=== PATIENT | male | born 1955 | race Caucasian/White ===

== ENCOUNTER 2016-11-30 10:01 | Outpatient (RCR) | payer OTHER | END 2016-12-28 | LOC: M CR 10:01 | PROVIDERS: ATTEND Internal Medicine Cardiovascular Disease | DX: Z51.89 Encounter for other specified aftercare (principal); Z98.61 Coronary angioplasty status; I25.10 Atherosclerotic heart disease of native coronary artery without angina pectoris ==

== ENCOUNTER → 2017-04-07 | Outpatient (CLI) | payer OTHER ==
[2017-04-07 09:47] LABS: MEAN CORPUSCULAR HEMOGLOBIN 31.4 pg (27.0-33.0); MEAN CORPUSCULAR HGB CONC 33.9 g/dl (32.0-36.5); MEAN CORPUSCULAR VOLUME 92.7 fl (80.0-96.0); RED CELL DISTRIBUTION WIDTH 12.6 % (11.5-14.5); WHITE BLOOD COUNT 8.5 K/mm3 (4.0-10.0)
[2017-04-07 10:20] LABS: ANION GAP 7 MEQ/L (8-16); BLOOD UREA NITROGEN 17 MG/DL (7-18); CALCIUM LEVEL 8.4 MG/DL (8.8-10.2); CARBON DIOXIDE LEVEL 28 MEQ/L (21-32); CHLORIDE LEVEL 105 MEQ/L (98-107); CHOLESTEROL LEVEL 129 MG/DL (<200); CREATININE FOR GFR 1.07 MG/DL (0.70-1.30); GLOMERULAR FILTRATION RATE > 60.0 (>49); GLUCOSE, FASTING 104 MG/DL (80-110); POTASSIUM SERUM 4.5 MEQ/L (3.5-5.1); SODIUM LEVEL 140 MEQ/L (136-145); TRIGLYCERIDES LEVEL 72 MG/DL (<150)
== END ==
LOC: M WUC 08:08
PROVIDERS: ATTEND Internal Medicine Cardiovascular Disease
DX: E78.5 Hyperlipidemia, unspecified (principal); I25.10 Atherosclerotic heart disease of native coronary artery without angina pectoris

== ENCOUNTER 2018-02-17 14:20 | Observation (INO) | payer OTHER, SELFPAY ==
[2018-02-17 15:30] LABS: BEDSIDE GLUCOSE 107 MG/DL (80-115)
[2018-02-17 15:41] LABS: BASO % 0.2 % (0.0-1.0); EOS # 0.2 10^3/uL (0.0-0.50); EOS % 1.6 % (0.0-3.0); HEMATOCRIT 47.6 % (42.0-52.0); HEMOGLOBIN 15.9 g/dl (14.0-18.0); IMMATURE GRANULOCYTE % 0.4 % (0-3.0); LYMPH % 14.5 % (24.0-44.0); MEAN CORPUSCULAR HEMOGLOBIN 29.6 pg (27.0-33.0); MEAN CORPUSCULAR HGB CONC 33.4 g/dl (32.0-36.5); MEAN CORPUSCULAR VOLUME 88.5 fl (80.0-96.0); MONO # 1.3 10^3/uL (0.0-0.8); MONO % 9.3 % (0.0-5.0); PLATELET COUNT, AUTOMATED 196 10^3/uL (150-450); RED BLOOD COUNT 5.38 10^6/uL (4.30-6.10); RED CELL DISTRIBUTION WIDTH 12.4 % (11.5-14.5); WHITE BLOOD COUNT 13.5 10^3/uL (4.0-10.0)
[2018-02-17 15:59] LABS: INR 0.97; PARTIAL THROMBOPLASTIN TIME 24.8 SECONDS (26.8-37.9); PROTHROMBIN TIME 12.9 SECONDS (12.4-14.5)
[2018-02-17 16:11] LABS: ANION GAP 5 MEQ/L (8-16); BLOOD UREA NITROGEN 14 MG/DL (7-18); CALCIUM LEVEL 8.8 MG/DL (8.8-10.2); CARBON DIOXIDE LEVEL 30 MEQ/L (21-32); CHLORIDE LEVEL 104 MEQ/L (98-107); CPK CREATINE PHOSPHOKINASE 184 U/L (39-308); CREATININE FOR GFR 1.05 MG/DL (0.70-1.30); GLOMERULAR FILTRATION RATE > 60.0 (>49); GLUCOSE, FASTING 109 MG/DL (70-100); POTASSIUM SERUM 4.6 MEQ/L (3.5-5.1); SODIUM LEVEL 139 MEQ/L (136-145); TROPONIN I < 0.02 NG/ML (< 0.10)
[2018-02-17 16:17] LABS: CK-MB VALUE MASS 2.3 NG/ML (<3.6); MB/CK RELATIVE INDEX 1.25 (< OR =4)
[2018-02-17 17:54] LABS: CK-MB VALUE MASS 1.9 NG/ML (<3.6); CPK CREATINE PHOSPHOKINASE 173 U/L (39-308); MB/CK RELATIVE INDEX 1.09 (< OR =4); TROPONIN I < 0.02 NG/ML (< 0.10)
[2018-02-17 22:39] LABS: CK-MB VALUE MASS 1.7 NG/ML (<3.6); CPK CREATINE PHOSPHOKINASE 150 U/L (39-308); MB/CK RELATIVE INDEX 1.13 (< OR =4); TROPONIN I < 0.02 NG/ML (< 0.10)
[2018-02-18] MEDS ORDERED: ACETAMINOPHEN TAB 650MG DOSE (2X325MG) PO ×2
[2018-02-18] MEDS: ASPIRIN 81 MG ENTERIC TAB PO ×2 (08:47)
[2018-02-18 08:59] LABS: HEMATOCRIT 45.5 % (42.0-52.0); MEAN CORPUSCULAR HEMOGLOBIN 29.5 pg (27.0-33.0); MEAN CORPUSCULAR VOLUME 89.4 fl (80.0-96.0); PLATELET COUNT, AUTOMATED 222 10^3/uL (150-450); RED BLOOD COUNT 5.09 10^6/uL (4.30-6.10); RED CELL DISTRIBUTION WIDTH 12.6 % (11.5-14.5); WHITE BLOOD COUNT 9.3 10^3/uL (4.0-10.0)
[2018-02-18 09:24] LABS: ANION GAP 6 MEQ/L (8-16); BLOOD UREA NITROGEN 11 MG/DL (7-18); CALCIUM LEVEL 8.3 MG/DL (8.8-10.2); CARBON DIOXIDE LEVEL 30 MEQ/L (21-32); CHLORIDE LEVEL 105 MEQ/L (98-107); CREATININE FOR GFR 1.09 MG/DL (0.70-1.30); GLOMERULAR FILTRATION RATE > 60.0 (>49); GLUCOSE, FASTING 130 MG/DL (70-100); POTASSIUM SERUM 4.2 MEQ/L (3.5-5.1); SODIUM LEVEL 141 MEQ/L (136-145)
[2018-02-18] MEDS ORDERED: ATORVASTATIN 20 MG TAB PO ×2 (21:00)
== END 2018-02-18 14:44 | disposition home or self-care (01) ==
LOC: M ED INP 14:21 → M ED 14:20
PROVIDERS: Hospitalist
DX: R55 Syncope and collapse (principal); I10 Essential (primary) hypertension; E78.4 Other hyperlipidemia; I25.10 Atherosclerotic heart disease of native coronary artery without angina pectoris; Z98.61 Coronary angioplasty status; Z79.82 Long term (current) use of aspirin; I65.23 Occlusion and stenosis of bilateral carotid arteries; Z79.899 Other long term (current) drug therapy
CPT/HCPCS: 71045

== ENCOUNTER → 2020-04-29 | Outpatient (CLI) | payer SELFPAY ==
[~2020-04-29] MED LIST: ASPI81TA85 PO; ATOR1TAB21 PO; METO1TAB87 PO
[2020-04-29 10:21] LABS: BLOOD UREA NITROGEN 13 MG/DL (7-18); CARBON DIOXIDE LEVEL 29 MEQ/L (21-32); CHLORIDE LEVEL 105 MEQ/L (98-107); CHOLESTEROL LEVEL 120 MG/DL (<200); CREATININE FOR GFR 1.09 MG/DL (0.70-1.30); GLOMERULAR FILTRATION RATE > 60.0 (>49); GLUCOSE, FASTING 107 MG/DL (70-100); HDL CHOLESTEROL 40 MG/DL (>40); LDL CHOLESTEROL 66 MG/DL (<100); NON-HDL-C 80 MG/DL; POTASSIUM SERUM 4.5 MEQ/L (3.5-5.1); SODIUM LEVEL 138 MEQ/L (136-145); TRIGLYCERIDES LEVEL 71 MG/DL (<150)
== END ==
LOC: M WUC 08:32
PROVIDERS: ATTEND Nurse Practitioner Family
DX: I25.10 Atherosclerotic heart disease of native coronary artery without angina pectoris (principal)

== ENCOUNTER 2023-09-04 08:15 | Inpatient (IN) | payer MEDICARE, SELFPAY ==
[2023-09-04] VITALS (9 sets, daily range): BP systolic 130–194; BP diastolic 61–81; TEMP 96.5–98.2; O2SAT 96–98
[~2023-09-04] VITALS: Ht 182.9 cm; Wt 86.6 kg
[~2023-09-04 08:15] MED LIST changes: -ASPI81TA85 PO; +ASPI81TA86 PO
[2023-09-04] MEDS ORDERED: ISOVUE-370 76% 100ML VIAL As Ordered ONE (08:25)
[2023-09-04] MEDS ORDERED: IBUP-1114 PO (09:18)
[2023-09-04 09:27] LABS: BASO % 0.4 % (0.0-1.0); EOS # 0.3 10^3/uL (0.0-0.5); EOS % 3.8 % (0.0-3.0); HEMATOCRIT 45.5 % (42.0-52.0); HEMOGLOBIN 14.9 g/dl (13.5-17.5); LYMPH % 22.1 % (24.0-44.0); MEAN CORPUSCULAR HEMOGLOBIN 29.7 pg (27.0-33.0); MEAN CORPUSCULAR HGB CONC 32.7 g/dl (32.0-36.5); MEAN CORPUSCULAR VOLUME 90.8 fl (80.0-96.0); MONO # 0.6 10^3/uL (0.0-0.8); MONO % 7.1 % (2.0-8.0); NEUTROPHILS # 5.9 10^3/uL (1.5-8.5); NEUTROPHILS % 66.5 % (36.0-66.0); PLATELET COUNT, AUTOMATED 183 10^3/uL (150-450); RED BLOOD COUNT 5.01 10^6/uL (4.30-6.10); WHITE BLOOD COUNT 8.9 10^3/uL (4.0-10.0)
[2023-09-04 09:39] LABS: INR 1.1; PARTIAL THROMBOPLASTIN TIME 26.5 SECONDS (24.8-34.2); PROTHROMBIN TIME 13.9 SECONDS (12.5-14.5)
[2023-09-04 09:45] LABS: BLOOD UREA NITROGEN 20 MG/DL (9-23); CALCIUM LEVEL 8.3 MG/DL (8.3-10.6); CARBON DIOXIDE LEVEL 25 MMOL/L (20-31); CHLORIDE LEVEL 107 MMOL/L (98-107); CK-MB VALUE MASS 1.5 NG/ML (<3.6); GLOMERULAR FILTRATION RATE > 60.0 (>49); GLUCOSE, FASTING 106 MG/DL (74-106); POTASSIUM SERUM 4.4 MMOL/L (3.5-5.1); SODIUM LEVEL 138 MMOL/L (136-145)
[2023-09-04 09:55] LABS: RSV AMPLIFICATION NEGATIVE (NEGATIVE)
[2023-09-04 09:58] LABS: CPK CREATINE PHOSPHOKINASE 181 U/L (46-171); MB/CK RELATIVE INDEX 0.82 (< OR =4)
[2023-09-04] MEDS ORDERED: ASPIRIN 81MG CHEW TABLET PO ONE (10:30)
[2023-09-04 10:46] LABS: CK-MB VALUE MASS 1.7 NG/ML (<3.6)
[2023-09-04 10:47] LABS: MB/CK RELATIVE INDEX 0.94 (< OR =4)
[2023-09-04] MEDS ORDERED: MED REC IN PROGRESS XX SCH (11:15)
[2023-09-04] MEDS ORDERED: IBUP200C25 PO (12:01)
[2023-09-04] MEDS ORDERED: ATOR40TA75 PO (12:01)
[2023-09-04] MEDS ORDERED: ASPI-161 PO (12:01)
[2023-09-04] MEDS ORDERED: ATORVASTATIN 20 MG TAB PO ONE (12:10)
[2023-09-04] MEDS ORDERED: HOME MED LIST COMPLETE! XX SCH (12:10)
[2023-09-04] MEDS ORDERED: ACETAMINOPHEN TAB 650MG DOSE (2X325MG) PO PRN (14:55)
[2023-09-04] MEDS ORDERED: MOM 30ML SUSPENSION UDC PO PRN (14:55)
[2023-09-04] MEDS ORDERED: NS 1,000 ML IV SCH (14:55)
[2023-09-04] MEDS ORDERED: ENOXAPARIN 40MG/0.4ML SYRINGE (J1650 PER 10MG) SC ONE (14:55)
[2023-09-04] MEDS ORDERED: SENOKOT S TAB PO PRN (14:55)
[2023-09-04] MEDS ORDERED: NS 1,000 ML IV ONE ×2 (16:35→22:25)
[2023-09-04] MEDS: NS 1,000 ML IV SCH (22:42)
[2023-09-05] VITALS (8 sets, daily range): BP systolic 105–161; BP diastolic 60–75; TEMP 96.4–98.4; O2SAT 95–98
[2023-09-05] MEDS: NS 1,000 ML IV SCH ×4 (04:37→19:42)
[2023-09-05 06:50] LABS: HEMATOCRIT 41.7 % (42.0-52.0); HEMOGLOBIN 13.8 g/dl (13.5-17.5); MEAN CORPUSCULAR HEMOGLOBIN 29.8 pg (27.0-33.0); MEAN CORPUSCULAR HGB CONC 33.1 g/dl (32.0-36.5); MEAN CORPUSCULAR VOLUME 90.1 fl (80.0-96.0); PLATELET COUNT, AUTOMATED 173 10^3/uL (150-450); RED BLOOD COUNT 4.63 10^6/uL (4.30-6.10); WHITE BLOOD COUNT 7.8 10^3/uL (4.0-10.0)
[2023-09-05 07:20] LABS: BLOOD UREA NITROGEN 12 MG/DL (9-23); CALCIUM LEVEL 7.7 MG/DL (8.3-10.6); CARBON DIOXIDE LEVEL 24 MMOL/L (20-31); CHLORIDE LEVEL 111 MMOL/L (98-107); CHOLESTEROL LEVEL 99 MG/DL (<200); CHOLESTEROL RISK RATIO 3.16 (<5); CREATININE FOR GFR 0.91 MG/DL (0.70-1.30); GLOMERULAR FILTRATION RATE > 60.0 (>49); GLUCOSE, FASTING 103 MG/DL (74-106); HDL CHOLESTEROL 31.3 MG/DL (>40); LDL CHOLESTEROL 54.7 MG/DL (<100); NON-HDL-C 67.7 MG/DL; POTASSIUM SERUM 3.9 MMOL/L (3.5-5.1); SODIUM LEVEL 141 MMOL/L (136-145); TRIGLYCERIDES LEVEL 65 MG/DL (<150)
[2023-09-05 07:47] LABS: HEMOGLOBIN A1c 5.1 % (4.0-6.0)
[2023-09-05] MEDS: ASPIRIN ENTERIC 325MG TAB PO SCH (08:35)
[2023-09-05] MEDS: ENOXAPARIN 40MG/0.4ML SYRINGE (J1650 PER 10MG) SC SCH (08:35)
[2023-09-05] MEDS ORDERED: NS 500 ML IV ONE ×3 (09:15→18:25)
[2023-09-05] MEDS ORDERED: NS 1,000 ML IV ONE (13:40)
[2023-09-05] MEDS ORDERED: ATORVASTATIN 20 MG TAB PO SCH (21:00)
[2023-09-06] MEDS: NS 1,000 ML IV SCH ×2 (02:36→09:15)
[2023-09-06 04:19] VITALS: BP 110/56; TEMP 97.3; O2SAT 94
[2023-09-06] MEDS ORDERED: NS 500 ML IV ONE (04:35)
[2023-09-06 06:09] LABS: HEMATOCRIT 38.6 % (42.0-52.0); HEMOGLOBIN 12.7 g/dl (13.5-17.5); MEAN CORPUSCULAR HEMOGLOBIN 29.7 pg (27.0-33.0); MEAN CORPUSCULAR HGB CONC 32.9 g/dl (32.0-36.5); MEAN CORPUSCULAR VOLUME 90.2 fl (80.0-96.0); PLATELET COUNT, AUTOMATED 157 10^3/uL (150-450); RED BLOOD COUNT 4.28 10^6/uL (4.30-6.10); WHITE BLOOD COUNT 6.9 10^3/uL (4.0-10.0)
[2023-09-06 06:32] LABS: BLOOD UREA NITROGEN 9 MG/DL (9-23); CALCIUM LEVEL 7.6 MG/DL (8.3-10.6); CARBON DIOXIDE LEVEL 24 MMOL/L (20-31); CHLORIDE LEVEL 113 MMOL/L (98-107); CREATININE FOR GFR 0.91 MG/DL (0.70-1.30); GLOMERULAR FILTRATION RATE > 60.0 (>49); GLUCOSE, FASTING 100 MG/DL (74-106); POTASSIUM SERUM 3.7 MMOL/L (3.5-5.1); SODIUM LEVEL 143 MMOL/L (136-145)
[2023-09-06] MEDS: ASPIRIN ENTERIC 325MG TAB PO SCH (09:09)
[2023-09-06] MEDS: ENOXAPARIN 40MG/0.4ML SYRINGE (J1650 PER 10MG) SC SCH (09:10)
[2023-09-06 09:13] VITALS: BP 135/68; TEMP 97; O2SAT 98
[2023-09-06] MEDS ORDERED: ACET1TAB55 PO (11:06)
[2023-09-06] MEDS ORDERED: ATOR1TAB21 PO (11:06)
[2023-09-06 12:48] VITALS: BP 139/65; TEMP 97.8; O2SAT 99
== END 2023-09-06 14:06 | disposition home or self-care (01) | DRG 66 ==
LOC: M ED 08:15 → EDBD 08:15 → M ED INP 11:20 → M PCU 12:06
PROVIDERS: ADMIT General Practice; ATTEND General Practice
PROC: B246ZZZ Ultrasonography of Right and Left Heart (ICD-10-PCS; principal; 2023-09-06)
DX: I63.511 Cerebral infarction due to unspecified occlusion or stenosis of right middle cerebral artery (principal); I10 Essential (primary) hypertension; R20.0 Anesthesia of skin; E78.5 Hyperlipidemia, unspecified; I25.10 Atherosclerotic heart disease of native coronary artery without angina pectoris; Z95.5 Presence of coronary angioplasty implant and graft; Z79.82 Long term (current) use of aspirin; Z79.899 Other long term (current) drug therapy; Z20.822 Contact with and (suspected) exposure to COVID-19

== ENCOUNTER → 2023-09-30 | Outpatient (REF) | payer MEDICARE ==
[~2023-09-30] MED LIST changes: +ACET1TAB55 PO; +ASPI-161 PO; +ATOR40TA75 PO; +IBUP-1114 PO; +IBUP200C25 PO
== END ==
LOC: M SFHCPLAZ 09:22
PROVIDERS: ATTEND Internal Medicine Hematology
DX: Z53.9 Procedure and treatment not carried out, unspecified reason (principal)

== ENCOUNTER 2024-02-10 19:39 | Emergency (ER) | payer MEDICARE ==
[~2024-02-10] VITALS: Ht 182.9 cm; Wt 83.6 kg
[~2024-02-10 19:39] MED LIST changes: -ASPI-161 PO; +ASPI-615 PO
[2024-02-10] MEDS ORDERED: CLOP75TA99 PO (19:47)
[2024-02-10 20:51] LABS: BASO % 0.3 % (0.0-1.0); EOS # 0.2 10^3/uL (0.0-0.5); EOS % 1.7 % (0.0-3.0); HEMOGLOBIN 14.4 g/dl (13.5-17.5); LYMPH # 1.9 10^3/uL (1.5-5.0); LYMPH % 19.9 % (24.0-44.0); MEAN CORPUSCULAR HEMOGLOBIN 30.3 pg (27.0-33.0); MEAN CORPUSCULAR HGB CONC 33.5 g/dl (32.0-36.5); MEAN CORPUSCULAR VOLUME 90.3 fl (80.0-96.0); MONO # 0.8 10^3/uL (0.0-0.8); MONO % 8.8 % (2.0-8.0); NEUTROPHILS # 6.6 10^3/uL (1.5-8.5); NEUTROPHILS % 69.1 % (36.0-66.0); PLATELET COUNT, AUTOMATED 190 10^3/uL (150-450); RED BLOOD COUNT 4.76 10^6/uL (4.30-6.10); WHITE BLOOD COUNT 9.6 10^3/uL (4.0-10.0)
[2024-02-10] MEDS ORDERED: ISOVUE-370 76% 100ML VIAL As Ordered ONE (20:52)
[2024-02-10 21:00] LABS: INR 1.04; PARTIAL THROMBOPLASTIN TIME 24.8 SECONDS (24.8-34.2); PROTHROMBIN TIME 13.3 SECONDS (12.5-14.5)
[2024-02-10 21:20] LABS: CK-MB VALUE MASS 2.4 NG/ML (<3.6)
[2024-02-10 21:21] LABS: MAGNESIUM LEVEL 2.3 MG/DL (1.8-2.4)
[2024-02-10 21:22] LABS: CPK CREATINE PHOSPHOKINASE 208 U/L (46-171); MB/CK RELATIVE INDEX 1.15 (< OR =4)
[2024-02-10 21:25] LABS: FREE T4 1.02 NG/DL (0.89-1.76); THYROID STIMULATING HORMONE 7.206 uIU/ML (0.55-4.78)
[2024-02-10 21:30] LABS: RSV AMPLIFICATION NEGATIVE (NEGATIVE)
[2024-02-10 22:23] LABS: BLOOD UREA NITROGEN 13 MG/DL (9-23); CALCIUM LEVEL 8.7 MG/DL (8.3-10.6); CARBON DIOXIDE LEVEL 28 MMOL/L (20-31); CHLORIDE LEVEL 103 MMOL/L (98-107); CREATININE FOR GFR 0.91 MG/DL (0.70-1.30); GLOMERULAR FILTRATION RATE > 60.0 (>49); GLUCOSE, FASTING 124 MG/DL (74-106); POTASSIUM SERUM 3.9 MMOL/L (3.5-5.1); SODIUM LEVEL 137 MMOL/L (136-145)
[2024-02-10 22:45] VITALS: BP 126/68
[2024-02-10 22:54] VITALS: TEMP 97.1
[2024-02-10 23:09] VITALS: O2SAT 97
== END 2024-02-10 23:24 | disposition home or self-care (01) ==
LOC: M ED 19:39
DX: R55 Syncope and collapse (principal); M47.892 Other spondylosis, cervical region; I25.10 Atherosclerotic heart disease of native coronary artery without angina pectoris; I25.2 Old myocardial infarction; Z86.73 Personal history of transient ischemic attack (TIA), and cerebral infarction without residual deficits; E78.5 Hyperlipidemia, unspecified; Z95.5 Presence of coronary angioplasty implant and graft; Z79.82 Long term (current) use of aspirin
CPT/HCPCS: 70450; 71045; 71275; 72125; 80047; 80048; 82550; 82553; 83605; 83735; 84439; 84443; 84484; 85025; 85610; 85730; 87631; 93005; 93041; 94760; 99285; Q9967

== ENCOUNTER → 2024-07-09 | Outpatient (CLI) | payer MEDICARE ==
[~2024-07-09] MED LIST changes: +CLOP75TA99 PO
[2024-07-09 15:44] LABS: BASO % 0.4 % (0.0-1.0); EOS # 0.2 10^3/uL (0.0-0.5); EOS % 2.5 % (0.0-3.0); HEMATOCRIT 43.4 % (42.0-52.0); HEMOGLOBIN 14.2 g/dl (13.5-17.5); LYMPH # 2.7 10^3/uL (1.5-5.0); LYMPH % 32.2 % (24.0-44.0); MEAN CORPUSCULAR HEMOGLOBIN 29.8 pg (27.0-33.0); MEAN CORPUSCULAR HGB CONC 32.7 g/dl (32.0-36.5); MEAN CORPUSCULAR VOLUME 91.2 fl (80.0-96.0); MONO # 0.6 10^3/uL (0.0-0.8); MONO % 6.9 % (2.0-8.0); NEUTROPHILS # 4.8 10^3/uL (1.5-8.5); NEUTROPHILS % 57.9 % (36.0-66.0); PLATELET COUNT, AUTOMATED 193 10^3/uL (150-450); RED BLOOD COUNT 4.76 10^6/uL (4.30-6.10); WHITE BLOOD COUNT 8.3 10^3/uL (4.0-10.0)
[2024-07-09 15:58] LABS: ALBUMIN 3.7 G/DL (3.2-5.2); ALKALINE PHOSPHATASE 102 U/L (46-116); ALT/SGPT 30 U/L (7.0-40); AST/SGOT 26 U/L (<34); BILIRUBIN,DIRECT 0.6 MG/DL (<0.4); BILIRUBIN,TOTAL 1.5 MG/DL (0.3-1.2); BLOOD UREA NITROGEN 10 MG/DL (9-23); CARBON DIOXIDE LEVEL 29 MMOL/L (20-31); CHLORIDE LEVEL 107 MMOL/L (98-107); CHOLESTEROL LEVEL 111 MG/DL (<200); CHOLESTEROL RISK RATIO 2.86 (<5); CREATININE FOR GFR 1.03 MG/DL (0.70-1.30); FREE T4 1.07 NG/DL (0.89-1.76); GLOMERULAR FILTRATION RATE > 60.0 (>49); GLUCOSE, FASTING 129 MG/DL (74-106); HDL CHOLESTEROL 38.7 MG/DL (>40); LDL CHOLESTEROL 60.5 MG/DL (<100); NON-HDL-C 72.3 MG/DL; PHOSPHORUS LEVEL 3.3 MG/DL (2.4-5.1); POTASSIUM SERUM 4.1 MMOL/L (3.5-5.1); SODIUM LEVEL 139 MMOL/L (136-145); THYROID STIMULATING HORMONE 3.578 uIU/ML (0.55-4.78); TOTAL PROTEIN 6.7 G/DL (5.7-8.2); TRIGLYCERIDES LEVEL 59 MG/DL (<150)
[2024-07-09 16:46] LABS: HEMOGLOBIN A1c 5.5 % (4.0-6.0)
[2024-07-12 09:43] LABS: LIPOPROTEIN (a) 98 nmol/L (<75)
[2024-07-13 09:32] LABS: APTT APSCOMP 32 sec (<=40); DRVTT Screen Seconds 41 sec (<=45)
[2024-07-18 07:03] LABS: Anticardiolipin Ab, IGG < 2.0 GPL-U/mL (<20.0); Anticardiolipin Ab, IGM 9.1 MPL-U/mL (<20.0); Anticardiolipin Ab, IgA < 2.0 APL-U/mL (<20.0); Beta-2 GLYCOPROTEIN I, IGG < 2.0 U/mL (<20.0); Beta-2 Glycoprotein I, IGA 2.5 U/mL (<20.0); Beta-2 Glycoprotein I, IGM 9.8 U/mL (<20.0)
== END ==
LOC: M PLALAB 13:53
PROVIDERS: ATTEND Student in an Organized Health Care Education/Training Program
DX: Z00.00 Encounter for general adult medical examination without abnormal findings (principal); Z79.899 Other long term (current) drug therapy; Z79.01 Long term (current) use of anticoagulants

== ENCOUNTER → 2025-06-11 | Outpatient (CLI) | payer MEDICARE ==
[2025-06-11 15:57] LABS: PLATELET COUNT, AUTOMATED 195 10^3/uL (150-450)
[2025-06-11 16:20] LABS: ALT/SGPT 27.0 U/L (7.0-40); AST/SGOT 29.0 U/L (<34); CALCIUM LEVEL 9.0 MG/DL (8.3-10.6); CARBON DIOXIDE LEVEL 28.0 MMOL/L (20-31); CHLORIDE LEVEL 102.0 MMOL/L (98-107); CHOLESTEROL LEVEL 102.0 MG/DL (<200); CHOLESTEROL RISK RATIO 2.58 (<5); CREATININE FOR GFR 0.97 MG/DL (0.70-1.30); GLOMERULAR FILTRATION RATE 85.0 (>49); LDL CHOLESTEROL 52.2 MG/DL (<100); NON-HDL-C 62.6 MG/DL; POTASSIUM SERUM 4.2 MMOL/L (3.5-5.1); SODIUM LEVEL 140.0 MMOL/L (136-145); TRIGLYCERIDES LEVEL 52.0 MG/DL (<150)
[2025-06-11 16:21] LABS: FREE T4 1.17 NG/DL (0.89-1.76)
[2025-06-11 16:22] LABS: VITAMIN B12 LEVEL 545.0 PG/ML (211-911)
[2025-06-11 16:40] LABS: ESTIMATED AVERAGE GLUCOSE 105.0 MG/DL (60-110)
== END ==
LOC: M PLALAB 13:57
DX: Z13.0 Encounter for screening for diseases of the blood and blood-forming organs and certain disorders involving the immune mechanism (principal); Z13.1 Encounter for screening for diabetes mellitus; Z13.29 Encounter for screening for other suspected endocrine disorder; E78.2 Mixed hyperlipidemia